=== PATIENT | male | born 1965 | race Caucasian/White ===

== ENCOUNTER 2021-06-03 06:55 | Outpatient (REF) | payer OTHER, SELFPAY ==
--- NOTE | ~2021-06-03 | CT_ITS ---
EXAMINATION: CT CHEST SCREENING CLINICAL INFORMATION: Nicotine dependence. COMPARISON: None. TECHNIQUE: Multidetector volumetric CT imaging of the chest is performed without contrast using low dose technique. Additional 2D coronal and sagittal reformatted images and axial 3D maximum intensity projection (MIP) images are generated on the CT workstation. This CT examination was performed using dose optimization techniques as appropriate, variously including the following: *Automated exposure control *Adjustment of mA and/or kV according to patient size (this includes techniques or standardized protocols for targeted exams where dose is matched to indication/reason for exam; i.e. extremities or head) *Use of iterative reconstruction technique DLP: 49 mGy-cm FINDINGS: LUNGS: There is 4 mm linear density right upper lobe anterior segment image 107/6, 2 mm nodules left upper lobe anterior segment image 203/6 and 199/6. No additional nodules, mass or consolidation seen. There is diffuse centrilobular emphysema most prominent in the upper lobes and basilar segments. MEDIASTINUM: The thyroid lobes are symmetric and normal. The central trachea and the bronchi are widely patent. Heart size and the great vessels are normal caliber. No abnormal size mediastinal or hilar lymph nodes seen. There is no pericardial effusion. PLEURA: There is no pleural effusion. No pleural mass or thickening. AXILLA: There are small shotty lymph nodes in the axilla. UPPER ABDOMEN: Visualized liver, spleen, pancreas and bilateral adrenal glands are unremarkable. OSSEOUS STRUCTURES: No aggressive lytic or sclerotic process seen. There is minimal ventral spondylosis. CT/CT lung screening IMPRESSION: Diffuse centrilobular emphysema. No focal mass or consolidation. There are 2 small nodules in the left upper lobe. ASSESSMENT: Lung-RADS category 2: Benign RECOMMENDATION: Low-dose annual CT chest exam
--- NOTE | ~2021-06-03 | XR_ITS ---
EXAMINATION: XR KNEE, RIGHT CLINICAL INFORMATION: Pain in the mass COMPARISON: None TECHNIQUE: 2 views of the right knee. FINDINGS: There is moderate loss of medial and patellofemoral compartment joint space with periarticular spurring. No acute fracture, bony erosive changes or loose body seen. There is mild suprapatellar joint effusion. XR/XR knee RT 2V IMPRESSION: Moderate degenerative arthritic changes medial and patellofemoral compartment. No visible acute fracture or dislocation. Mild suprapatellar joint effusion.
--- NOTE | ~2021-06-03 | XR_ITS ---
EXAMINATION: XR KNEE, LEFT CLINICAL INFORMATION: Pain and weakness COMPARISON: None TECHNIQUE: Four views of the left knee. FINDINGS: There is loss of lateral and patellofemoral compartment joint space with moderate periarticular spurring. No loose bodies or bony erosive changes seen. Minimal suprapatellar joint effusion seen. Rest the soft tissues are normal.. XR/XR knee LT 2V IMPRESSION: Moderate degenerative arthritic changes medial and patellofemoral compartment. No visible acute fracture or dislocation seen. Minimal suprapatellar joint effusion.
[2021-06-03 07:18] LABS: MANUAL DIFF FLAG NO
[2021-06-03 08:02] LABS: Basophils Percent Auto 0.6 % (0-2); Eosinophils Absolute Auto 0.2 X10*3/uL (0.0-0.4); Eosinophils Percent Auto 3.5 % (0-4); Hemoglobin 15.7 g/dl (14.0-18.0); Imm Gran Abs Auto 0.02 X10*3/uL (0.00-0.03); Imm Gran Pct Auto 0.3 % (0.0-0.4); Lymphocytes Absolute Auto 2.1 X10*3/uL (1.2-4.9); Lymphocytes Percent Auto 31.3 % (20-40); Mean Corpuscular HGB Conc 32.7 g/dl (31.0-36.0); Mean Corpuscular Hemoglobin 31.7 pg (27.0-33.0); Mean Platelet Volume 10.5 fL (9.4-12.4); Monocytes Absolute Auto 0.5 X10*3/uL (0.1-1.2); Monocytes Percent Auto 7.6 % (2-11); Neutrophils Absolute Auto 3.7 x10*3/uL (2.0-8.3); Neutrophils Percent Auto 56.7 % (45-73); Platelet Count 281 X10*3/uL (160-400); Red Blood Count 4.95 X10*6/uL (4.60-5.80); Red Cell Distribution Width 13.6 % (11.0-16.0); White Blood Count 6.6 X10*3/uL (4.8-10.8)
[2021-06-03 08:36] LABS: Alanine Aminotransferase 11 U/L (0-40); Albumin Level 3.9 g/dL (3.5-5.0); Alkaline Phosphatase 84 U/L (39-117); Anion Gap 10 (12-20); Aspartate Amino Transferase 12 U/L (5-37); Bilirubin Total 0.7 mg/dL (0.0-1.0); Blood Urea Nitrogen 19 mg/dL (9-16); Calcium 9.2 mg/dL (8.4-10.2); Carbon Dioxide 25 mmol/L (22-29); Chloride 110 mmol/L (96-108); Cholesterol 172 mg/dL; Estimated Glomerular Filt Rate > 60; Glucose Random 103 mg/dL (60-115); HDL Cholesterol 42 mg/dL; LDL Cholesterol Calculated 115 mg/dl; Potassium 5.1 mmol/L (3.3-5.1); Sodium 140 mmol/L (135-145); Total Protein 6.4 g/dL (6.5-8.0); Triglycerides 75 mg/dL
[2021-06-03 08:43] LABS: Free T4 (Free Thyroxine) 0.97 ng/dL (0.71-1.85); Thyroid Stimulating Hormone 1.15 uIU/mL (0.32-4.0)
[2021-06-03 09:13] LABS: Prostate Specific Antigen Scr 0.37 ng/mL (<0.05-4.0)
[2021-06-03 12:02] LABS: Folate 5.4 ng/mL (> or = 4.0); Vitamin B12 349 pg/mL (200-900)
== END 2021-06-03 06:56 | disposition home or self-care (01) ==
LOC: HO.CT 06:55
PROVIDERS: Absent Provider Internal Medicine; PCP Internal Medicine; Visit Provider Physician Assistant Medical
DX: Z12.2 Encounter for screening for malignant neoplasm of respiratory organs (principal); Z12.5 Encounter for screening for malignant neoplasm of prostate; F17.210 Nicotine dependence, cigarettes, uncomplicated; K21.9 Gastro-esophageal reflux disease without esophagitis; E78.00 Pure hypercholesterolemia, unspecified; M25.561 Pain in right knee; M25.562 Pain in left knee; R53.1 Weakness
CPT/HCPCS: 36415; 71271; 73560; 80053; 80061; 82607; 82746; 84153; 84439; 84443; 85025; G0296

== ENCOUNTER 2022-07-11 08:24 | Outpatient (REF) | payer BC, SELFPAY ==
--- NOTE | ~2022-07-11 | CT_ITS ---
EXAMINATION: CT CHEST SCREENING CLINICAL INFORMATION: Current smoker. 30 pack year history. COMPARISON: Previous chest CT May 2021 TECHNIQUE: Multidetector volumetric CT imaging of the chest is performed without contrast using low dose technique. Additional 2D coronal and sagittal reformatted images and axial 3D maximum intensity projection (MIP) images are generated on the CT workstation. This CT examination was performed using dose optimization techniques as appropriate, variously including the following: *Automated exposure control *Adjustment of mA and/or kV according to patient size (this includes techniques or standardized protocols for targeted exams where dose is matched to indication/reason for exam; i.e. extremities or head) *Use of iterative reconstruction technique DLP: 52 mGy-cm FINDINGS: LUNGS: There is evidence of emphysema. The small pulmonary nodules are stable. Largest pulmonary nodule measures 4 mm in the left upper lobe axial image 243 series 5 and right upper lobe axial image 138 series 5. No new pulmonary nodule. No endobronchial or endotracheal lesion. MEDIASTINUM: The mediastinum is normal. CORONARY ARTERY CALCIFICATION: None visualized on this study. PLEURA: There is no pleural effusion. No pleural mass or thickening. AXILLA: No lymphadenopathy. UPPER ABDOMEN: Central low-attenuation in the left kidney questionable for a peripelvic cyst versus hydronephrosis. OSSEOUS STRUCTURES: Mild scoliosis and degenerative changes. CT/CT lung screening IMPRESSION: Emphysema. Stable small pulmonary nodules. ASSESSMENT: Lung-RADS category 2: Benign RECOMMENDATION: Annual low-dose chest CT follow-up recommended
== END 2022-07-11 08:25 | disposition home or self-care (01) ==
LOC: HO.CT 08:24
PROVIDERS: PCP Internal Medicine; Visit Provider Physician Assistant Medical
DX: Z12.2 Encounter for screening for malignant neoplasm of respiratory organs (principal); F17.210 Nicotine dependence, cigarettes, uncomplicated
CPT/HCPCS: 71271

== ENCOUNTER 2022-12-19 07:07 | Outpatient (REF) | payer BC, SELFPAY ==
[2022-12-19 07:19] LABS: MANUAL DIFF FLAG NO
[2022-12-19 07:39] LABS: Basophils Absolute Auto 0.1 X10*3/uL (0.0-0.2); Basophils Percent Auto 1.1 % (0-2); Eosinophils Absolute Auto 0.3 X10*3/uL (0.0-0.4); Hematocrit 47.9 % (42.0-52.0); Hemoglobin 15.4 g/dl (14.0-18.0); Imm Gran Abs Auto 0.01 X10*3/uL (0.00-0.03); Imm Gran Pct Auto 0.2 % (0.0-0.4); Lymphocytes Absolute Auto 2.1 X10*3/uL (1.2-4.9); Lymphocytes Percent Auto 38.4 % (20-40); Mean Corpuscular HGB Conc 32.2 g/dl (31.0-36.0); Mean Corpuscular Hemoglobin 30.7 pg (27.0-33.0); Mean Corpuscular Volume 95.6 fL (80.0-98.0); Mean Platelet Volume 10.3 fL (9.4-12.4); Monocytes Absolute Auto 0.4 X10*3/uL (0.1-1.2); Monocytes Percent Auto 7.9 % (2-11); Neutrophils Absolute Auto 2.6 x10*3/uL (2.0-8.3); Neutrophils Percent Auto 47.4 % (45-73); Platelet Count 266 X10*3/uL (160-400); Red Blood Count 5.01 X10*6/uL (4.60-5.80); Red Cell Distribution Width 13.9 % (11.0-16.0); White Blood Count 5.6 X10*3/uL (4.8-10.8)
[2022-12-19 07:47] LABS: Estimated Average Glucose 108 mg/dL; Hemoglobin A1c % 5.4 % (<6.0)
[2022-12-19 08:08] LABS: Alanine Aminotransferase 11 U/L (0-40); Albumin Level 3.8 g/dL (3.5-5.0); Alkaline Phosphatase 79 U/L (39-117); Anion Gap 11 (12-20); Aspartate Amino Transferase 13 U/L (5-37); Bilirubin Total 0.7 mg/dL (0.0-1.0); Blood Urea Nitrogen 19 mg/dL (9-16); Calcium 8.8 mg/dL (8.4-10.2); Carbon Dioxide 24 mmol/L (22-29); Chloride 108 mmol/L (96-108); Cholesterol 159 mg/dL (<200); Estimated Glomerular Filt Rate 60; Glucose Random 99 mg/dL (60-115); HDL Cholesterol 38 mg/dL (>40); LDL Cholesterol Calculated 105 mg/dL (<100); Potassium 4.2 mmol/L (3.3-5.1); Sodium 139 mmol/L (135-145); Total Protein 6.3 g/dL (6.5-8.0); Triglycerides 84 mg/dL (<150)
[2022-12-19 08:28] LABS: Free T4 (Free Thyroxine) 0.93 ng/dL (0.71-1.85); Thyroid Stimulating Hormone 1.31 uIU/mL (0.32-4.0)
[2022-12-19 08:45] LABS: Folate 6.7 ng/mL (> or = 4.0); Vitamin B12 320 pg/mL (200-900)
== END 2022-12-19 07:08 | disposition home or self-care (01) ==
LOC: HO.LAB 07:07
PROVIDERS: PCP Internal Medicine; Visit Provider Internal Medicine
DX: Z12.5 Encounter for screening for malignant neoplasm of prostate (principal); R73.09 Other abnormal glucose; E78.00 Pure hypercholesterolemia, unspecified
CPT/HCPCS: 36415; 80053; 80061; 82607; 82746; 83036; 84153; 84439; 84443; 85025

== ENCOUNTER 2023-04-10 14:12 | Outpatient (AMB) | payer BC, SELFPAY ==
[2023-04-10 14:13] VITALS: BP 144/86; PULSE 81; O2SAT 97; BMI 24.8
--- NOTE | 2023-04-10 14:13 | MHC.PC.OV ---
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 Allergies No Known Allergies Allergy (Verified 04/10/23 14:13) Medication List - Last Reconciled 04/10/23 by Ivanna Wilkes MD albuterol sulfate 90 mcg/actuation (Ventolin HFA) 2 puffs inhalation Q6H PRN fluticasone furoate-vilanterol 200-25 mcg/dose (Breo Ellipta) 1 inh inhalation DAILY hydroxyzine HCl 25 mg PO BEDTIME nicotine (polacrilex) 2 mg buccal Q2H tramadol 50 mg PO DAILY varenicline (Chantix Starting Month Box) PO PER PKG DIR Tobacco use date assessed: 04/10/23 Dental Screening Dental Screen Date: 04/10/23 Did you have a dental visit in the last 12 months?: No Did you have a dental problem in the last 6 months where you did not have access to dental care?: No HPI COPD, tobacco abuse, gerd HPI Details 58-year-old male smoker with COPD GERD bilateral knee pain and generalized anxiety disorder last seen in August 2022. Patient had Cologuard sent in. [facility] Medical History (Updated 04/10/23 @ 14:46 by Ivanna Wilkes MD) Blood pressure elevated without history of HTN Colon cancer screening Personal history of nicotine dependence Vitamin D deficiency COPD (chronic obstructive pulmonary disease) Surgical History History of repair of laceration History of hand surgery History of surgical removal of skin lesion History of thumb surgery History of tonsillectomy Family History (Updated 09/05/22 @ 08:26 by Priya Vasquez CMA) Father No problems noted. Mother Hypertension Alzheimers disease Son ADHD Autism Social History Housing: House Alcohol intake: never Patient Tobacco Use Status: Current everyday Tobacco user Tobacco use type: Cigarette Cigarettes Per Day: 10 Years Smoked: onset 20, 1ppd x 36yrs, now 1/2ppd, 35pyh) e-Cigarette/Vaping Use: Never Used Second Hand Smoke Exposure: Yes Current occupational status: employed Cognitive needs: No Hearing needs: No Vision needs: Yes Questionnaire Thrive Questionnaire Date Thrive assessed: 04/10/23 I am a: Patient What is your living situation today?: I have a steady place to live Within the past 12 months, did the food you bought not last and you didn't have the money to get more?: Never true Within the past 12 months, did you worry whether your food would run out before you got money to buy more?: Never true Do you have trouble paying for medicines?: No Do you have trouble getting transportation to medical appointments?: No Do you have trouble paying your heating and electricity bill?: No Do you have trouble taking care of your child, family member or friend?: No Do you have trouble with day-to-day activities such as bathing, preparing meals, shopping, managing finances, etc.?: No Are you currently unemployed and looking for a job?: No Are you interested in more education?: No AUDIT C Alcohol Use Questionnaire (AUDIT-C) 1. How often do you have a drink containing alcohol?: Never 2. How many drinks containing alcohol do you have on a typical day when you are drinking?: 1 or 2 3. How often do you have six or more drinks on one occasion?: Never Total Score: 0 Score Reviewed/Action Taken: No JOHNIE-7 AMB Questionnaire JOHNIE-7 Date JOHNIE - 7 assessed: 04/10/23 Source: Developed by Drs. Avery Bravo, Theresa Luna, Aditya Eng and colleagues, with an educational sloan from [employer]. Physical exam (Primary Care) Vital Signs: Last Vital Signs Pulse 81 04/10/23 14:13 BP 144/86 H 04/10/23 14:13 Pulse Ox 97 04/10/23 14:13 Oxygen Delivery Method Room Air 04/10/23 14:13 BMI result Body Mass Index 24.8 Tobacco/Smoking Status: Tobacco use Status Tobacco use date assessed 04/10/23 04/10/23 14:14 Patient Tobacco Use Status Current everyday Tobacco 04/10/23 14:14 Tobacco use type Cigarette 04/10/23 14:14 e-Cigarette/Vaping Use Never Used 04/10/23 14:14 Thrive Assessment: Date of Thrive Assessment Date Thrive assessed 04/10/23 04/10/23 14:14 Const General: alert; No acute distress Eyes Conjunctivae: conjunctivae normal Resp Auscultation: clear to auscultation bilaterally Cardio Rate: regular rate Rhythm: regular rhythm GI Inspection: Yes normal to inspection Extrem General: Yes normal to inspection and No edema Office Procedures Flu Questionnaire Does the patient have a severe egg allergy?: No Does the patient have severe life threatening allergies?: No Does the patient have a fever or illness today?: No Has the patient ever had Guillain-Granger Syndrome?: No Has the patient ever had any past reaction to a flu shot?: No Immunizations flu vacc [id number] 6mos up(PF) 60 mcg(15 mcgx4)/0.5 mL IM syringe Performing Provider: Ivanna Wilkes MD [facility] Administered by: CIRO Smith on 04/10/23 14:20 Dose Route Admin Location Dispensed Lot Number Expiration Date NDC Entrepreneurship Program Director 0.5 mL IM Left Deltoid 0.5 mL [id number] 09/23/23 [id number] [employer] VIS Given Date VIS Provided VIS Publication Date 04/10/23 Single Vaccine 20 Eligibility Eligibility Date Funding Source Not [facility] Eligible 04/10/23 Private Assessment and Plan Assessment & Plan (1) Tobacco abuse: Comment: Lung cancer screening June 2022 Code(s): Z72.0 - Tobacco use Plan: Patient is strongly advised to stop smoking (2) COPD (chronic obstructive pulmonary disease): Comment: (12/2016 PFT = moderate obstructive lung disease) Code(s): J44.9 - Chronic obstructive pulmonary disease, unspecified Plan: Patient strongly advised to stop smoking. Patient on Breo and Ventolin. controlled use of ventolin 2 x a week (3) GERD (gastroesophageal reflux disease): Code(s): K21.9 - Gastro-esophageal reflux disease without esophagitis Plan: GERD plan (4) Generalized anxiety disorder: Comment: Declined referral Code(s): F41.1 - Generalized anxiety disorder Plan: Continue with present medication. (5) Blood pressure elevated without history of HTN: Code(s): R03.0 - Elevated blood-pressure reading, without diagnosis of hypertension Plan: patient also is in pain L knee - will monitor for now (6) Osteoarthritis of knees, bilateral: Code(s): M17.0 - Bilateral primary osteoarthritis of knee Plan: L knee pain , deny fall or trauma 2021 had OA already. concern - taking NSAID - renal function rising. (7) Renal insufficiency: Code(s): N28.9 - Disorder of kidney and ureter, unspecified Orders: Orders Influenza [id number] Immunization Today Z23 - Encounter for immunization XR knee LT 2V Today M17.0 - Bilateral primary osteoarthritis of knee Basic Metabolic Panel Today N28.9 - Disorder of kidney and ureter, unspecified Referrals Orthopedics Referral M17.0 - Bilateral primary osteoarthritis of knee Medications: New tramadol 50 mg PO DAILY 20 tabs 0RF M17.0 - Bilateral primary osteoarthritis of knee Discontinued nicotine (polacrilex) Discontinued Reason: Patient Refused 2 mg buccal Q2H 110 ea 2RF Z72.0 - Tobacco use cyclobenzaprine Discontinued Reason: Doctor's Order 5 mg PO BEDTIME PRN 10 tabs 0RF muscle spasm M54.9 - Dorsalgia, unspecified varenicline (Chantix Starting Month Box) Discontinued Reason: Patient Refused PO PER PKG DIR 53 ea 0RF Z72.0 - Tobacco use Coding Level of Care Code Est Pt Level 4 (34386) Diagnoses Tobacco abuse Z72.0 COPD (chronic obstructive pulmonary disease) J44.9 GERD (gastroesophageal reflux disease) K21.9 Generalized anxiety disorder F41.1 Blood pressure elevated without history of HTN R03.0 Osteoarthritis of knees, bilateral M17.0 Renal insufficiency N28.9
== END 2023-04-10 14:54 | disposition home or self-care (01) ==
PROVIDERS: PCP Internal Medicine; Visit Provider Internal Medicine
DX: J44.9 Chronic obstructive pulmonary disease, unspecified (principal); K21.9 Gastro-esophageal reflux disease without esophagitis; Z72.0 Tobacco use; Z23 Encounter for immunization; F41.1 Generalized anxiety disorder; R03.0 Elevated blood-pressure reading, without diagnosis of hypertension; M17.0 Bilateral primary osteoarthritis of knee; N28.9 Disorder of kidney and ureter, unspecified
CPT/HCPCS: 90471; 90686; 99214

== ENCOUNTER 2023-04-26 09:06 | Outpatient (AMB) | payer BC, SELFPAY ==
--- NOTE | 2023-04-26 09:08 | A.OFFVIS_ITS ---
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 Patient reports his pain has been going on for about 30 years is a 7 on the 1-10 pain scale. He denies injury, injections and has use NSAIDS but did not help. He has no longer able to take the anti-inflammatory medicines because of the effect on his kidneys. He has been taking tramadol which gives him only mild relief. This patient states that both of his knees will give out several times per day. He has not had an injection. He wishes to hold off on surgery if at all possible. Allergies No Known Allergies Allergy (Verified 04/26/23 09:21) Medication List - Last Reconciled 04/26/23 by Esdras Angulo MD albuterol sulfate 90 mcg/actuation (Ventolin HFA) 2 puffs inhalation Q6H PRN fluticasone furoate-vilanterol 200-25 mcg/dose (Breo Ellipta) 1 inh inhalation DAILY hydroxyzine HCl 25 mg PO BEDTIME tramadol 50 mg PO DAILY PFSH Medical History Blood pressure elevated without history of HTN Colon cancer screening Personal history of nicotine dependence Vitamin D deficiency COPD (chronic obstructive pulmonary disease) Surgical History History of repair of laceration History of hand surgery History of surgical removal of skin lesion History of thumb surgery History of tonsillectomy Family History Father No problems noted. Mother Hypertension Alzheimers disease Son ADHD Autism Social History Housing: House Alcohol intake: never Patient Tobacco Use Status: Current everyday Tobacco user Tobacco use type: Cigarette Cigarettes Per Day: 10 Years Smoked: onset 20, 1ppd x 36yrs, now 1/2ppd, 35pyh) e-Cigarette/Vaping Use: Never Used Second Hand Smoke Exposure: Yes Current occupational status: employed Cognitive needs: No Hearing needs: No Vision needs: Yes Physical Exam Vital Signs: BMI result Body Mass Index 24.8 Const Other: Well-nourished well-developed very friendly male awake alert and oriented x3 in no acute distress Extrem Other: Bilateral lower extremity examination shows good capillary refill, no skin lesions noted, normal sensation light touch Bilateral knee examination shows minimal effusions, palpable crepitus with range of motion, pain with range of motion, no instability Results Reviewed Results Reviewed: X-rays of the patient's bilateral knee show moderate joint space narrowing, subchondral sclerosis, no acute bony abnormalities Assessment & Plan Assessment & Plan (1) Right knee pain: Code(s): M25.561 - Pain in right knee (2) Left knee pain: Code(s): M25.562 - Pain in left knee Plan Mr. Bass presents with bilateral knee pains due to degenerative joint disease. I had a lengthy discussion with the patient regarding the treatment options. He wishes to hold off on an injection for now. Because of his mechanical symptoms I did have him fitted with bilateral knee braces. The braces are a medical necessity to help prevent future falls. The patient will continue with his activity modifications. He will continue taking tramadol as needed for his discomfort. Will follow up with me on an as-needed basis should his symptoms worsen in any way. Feel free to call me at any time should questions regarding his orthopedic management arise. Thank you very much for asking me to see this very friendly gentleman. I spent 22 minutes in reviewing the patient's records and imaging studies, seeing the patient and documenting in the medical record. Orders: Orders XR knee LT 3V Today M25.562 - Pain in left knee XR knee RT 3V Today M25.561 - Pain in right knee Coding Level of Care Code New Pt Level 2 (84710) Diagnoses Right knee pain M25.561 Left knee pain M25.562
[2023-04-26 09:09] VITALS: BMI 24.8
== END 2023-04-26 09:36 | disposition home or self-care (01) ==
PROVIDERS: PCP Internal Medicine; Visit Provider Orthopaedic Surgery
DX: M25.561 Pain in right knee (principal); M25.562 Pain in left knee
CPT/HCPCS: 99202

== ENCOUNTER 2023-04-26 09:57 | Outpatient (REF) | payer BC, SELFPAY ==
--- NOTE | ~2023-04-26 | XR_ITS ---
EXAMINATION: XR KNEE, RIGHT CLINICAL INFORMATION: Pain. COMPARISON: Radiographs dated 06/03/2021. TECHNIQUE: AP, lateral and sunrise views of the right knee are submitted. FINDINGS: Bony alignment and mineralization are normal. There is mild to moderate asymmetric narrowing of the medial joint space compartment. The lateral and patellofemoral joint space compartments are well-maintained. There is mild peripheral osteophyte formation of the medial and patellofemoral joint space compartments. No fracture or dislocation is seen. There is a small joint effusion. There is mild peripheral osteophyte formation of the medial joint space compartment. There is hypertrophy of the lateral spur of the median tibial eminence. No foreign body is seen. XR/XR knee RT 3V IMPRESSION: 1. There is mild to moderate osteoarthritic change of the medial joint space compartment of the right knee, and mild osteoarthritic change is seen of the patellofemoral compartment. 2. There is no fracture or dislocation. 3. There is a small joint effusion. EXAMINATION: XR KNEE, LEFT CLINICAL INFORMATION: Pain. COMPARISON: Radiographs dated 06/03/2021. TECHNIQUE: AP, lateral and sunrise views of the left knee are submitted. FINDINGS: Bony alignment and mineralization are normal. There is mild asymmetric narrowing of the medial joint space compartment, peripheral osteophyte formation. The lateral and patellofemoral joint space compartment are well-maintained. No fracture or dislocation is seen. There is a small joint effusion. No foreign body is seen. IMPRESSION: 1. There is mild osteoarthritic change of the medial joint space compartment of the left knee. 2. There is no fracture or dislocation. 3. A small joint effusion is seen.
--- NOTE | ~2023-04-26 | XR_ITS ---
EXAMINATION: XR KNEE, RIGHT CLINICAL INFORMATION: Pain. COMPARISON: Radiographs dated 06/03/2021. TECHNIQUE: AP, lateral and sunrise views of the right knee are submitted. FINDINGS: Bony alignment and mineralization are normal. There is mild to moderate asymmetric narrowing of the medial joint space compartment. The lateral and patellofemoral joint space compartments are well-maintained. There is mild peripheral osteophyte formation of the medial and patellofemoral joint space compartments. No fracture or dislocation is seen. There is a small joint effusion. There is mild peripheral osteophyte formation of the medial joint space compartment. There is hypertrophy of the lateral spur of the median tibial eminence. No foreign body is seen. XR/XR knee LT 3V IMPRESSION: 1. There is mild to moderate osteoarthritic change of the medial joint space compartment of the right knee, and mild osteoarthritic change is seen of the patellofemoral compartment. 2. There is no fracture or dislocation. 3. There is a small joint effusion. EXAMINATION: XR KNEE, LEFT CLINICAL INFORMATION: Pain. COMPARISON: Radiographs dated 06/03/2021. TECHNIQUE: AP, lateral and sunrise views of the left knee are submitted. FINDINGS: Bony alignment and mineralization are normal. There is mild asymmetric narrowing of the medial joint space compartment, peripheral osteophyte formation. The lateral and patellofemoral joint space compartment are well-maintained. No fracture or dislocation is seen. There is a small joint effusion. No foreign body is seen. IMPRESSION: 1. There is mild osteoarthritic change of the medial joint space compartment of the left knee. 2. There is no fracture or dislocation. 3. A small joint effusion is seen.
== END 2023-04-26 09:58 | disposition home or self-care (01) ==
LOC: HO.HOSX 09:57
PROVIDERS: Visit Provider Orthopaedic Surgery
DX: M25.561 Pain in right knee (principal); M25.562 Pain in left knee
CPT/HCPCS: 73562

== ENCOUNTER 2023-05-12 07:27 | Outpatient (REF) | payer BC, SELFPAY ==
[2023-05-12 08:45] LABS: Anion Gap 8 (12-20); Blood Urea Nitrogen 15 mg/dL (9-16); Calcium 8.9 mg/dL (8.4-10.2); Carbon Dioxide 26 mmol/L (22-29); Chloride 108 mmol/L (96-108); Estimated Glomerular Filt Rate > 60; Glucose Random 104 mg/dL (60-115); Potassium 4.4 mmol/L (3.3-5.1); Sodium 138 mmol/L (135-145)
== END 2023-05-12 07:28 | disposition home or self-care (01) ==
LOC: HO.LAB 07:27
PROVIDERS: PCP Internal Medicine; Visit Provider Internal Medicine
DX: N28.9 Disorder of kidney and ureter, unspecified (principal)
CPT/HCPCS: 36415; 80048

== ENCOUNTER 2023-12-05 08:56 | Outpatient (AMB) | payer BC, SELFPAY ==
[2023-12-05 09:03] VITALS: BP 138/82; PULSE 61; O2SAT 96; BMI 24.2
--- NOTE | 2023-12-05 09:03 | A.OFFPC_ITS ---
Vital Signs 12/05/23 09:03 Height 5 ft 9 in Weight 164 lb BMI 24.2 BP 138/82 Blood Pressure Location Lt brachial Position Sitting Pulse 61 Pulse Source Pulse Oximeter Pulse Oximetry (%) 96 Oxygen Delivery Method Room Air Intake Visit Reasons: knee OA left Manager English Required: No Accompanied by: Self / Same As Patient Allergies No Known Allergies Allergy (Verified 12/05/23 09:03) Tobacco use date assessed: 04/10/23 Dental Screening Dental Screen Date: 04/10/23 HPI knee OA left HPI Details 58-year-old male smoker with COPD GERD g eneralized anxiety disorder and bilateral knee osteoarthritis coming in for follow-up last seen in March. Concern about the blood pressure the last time. Up-to-date with Cologuard testing patient had some knee x-rays in April There is mild to moderate osteoarthritic change of the medial joint space compartment of the right knee, and mild osteoarthritic change is seen of the patellofemoral compartment. 2. There is no fracture or dislocation 3. There is a small joint effusion. Diandra carter has seen the Orthopedics and was given knee braces to prevent future falls. On voltaren gel [facility] Medical History (Updated 12/05/23 @ 09:31 by Ivanna Wilkes MD) Knee pain, bilateral Blood pressure elevated without history of HTN Colon cancer screening Personal history of nicotine dependence Vitamin D deficiency COPD (chronic obstructive pulmonary disease) Surgical History History of repair of laceration History of hand surgery History of surgical removal of skin lesion History of thumb surgery History of tonsillectomy Family History Father No problems noted. Mother Hypertension Alzheimers disease Son ADHD Autism Social History Housing: House Alcohol intake: never Patient Tobacco Use Status: Current everyday Tobacco user Tobacco use type: Cigarette Cigarettes Per Day: 10 Years Smoked: onset 20, 1ppd x 36yrs, now 1/2ppd, 35pyh) e-Cigarette/Vaping Use: Never Used Second Hand Smoke Exposure: Yes Current occupational status: employed Cognitive needs: No Hearing needs: No Vision needs: Yes Questionnaire PHQ-9 Over the last 2 weeks, how often have you been bothered by any of the following problems? 1. Little interest or pleasure in doing things: several days 2. Feeling down, depressed, or hopeless: several days 3. Trouble falling or staying asleep, or sleeping too much: several days 4. Feeling tired or having little energy: several days 5. Poor appetite or overeating: not at all 6. Feeling bad about yourself - or that you are a failure or have let yourself or your family down: not at all 7. Trouble concentrating on things, such as reading the newspaper or watching television: not at all 8. Moving or speaking so slowly that other people could have noticed. Or the opposite - being so fidgety or restless that you have been moving around a lot more than usual: not at all 9. Thoughts that you would be better off or of hurting yourself in some way: not at all Total score: 4 Depression Screening Interpretation: Negative Depression Screening Done: Yes 89661 - PHQ-9 Billing: Yes Source: Developed by Drs. Avery Bravo, Theresa Luna, Aditya Eng and colleagues, with an educational sloan from [employer]. Thrive Questionnaire Date Thrive assessed: 04/10/23 AUDIT C Alcohol Use Questionnaire (AUDIT-C) 1. How often do you have a drink containing alcohol?: Never 2. How many drinks containing alcohol do you have on a typical day when you are drinking?: 1 or 2 3. How often do you have six or more drinks on one occasion?: Never Total Score: 0 Score Reviewed/Action Taken: No JOHNIE-7 AMB Questionnaire JOHNIE-7 Date JOHNIE - 7 assessed: 04/10/23 Source: Developed by Drs. Avery Bravo, Theresa Luna, Aditya Eng and colleagues, with an educational sloan from [employer]. Physical exam (Primary Care) Vital Signs: Last Vital Signs Pulse 61 12/05/23 09:03 BP 138/82 12/05/23 09:03 Pulse Ox 96 12/05/23 09:03 Oxygen Delivery Method Room Air 12/05/23 09:03 BMI result Body Mass Index 24.2 Tobacco/Smoking Status: Tobacco use Status Tobacco use date assessed 04/10/23 12/05/23 09:03 Patient Tobacco Use Status Current everyday Tobacco 12/05/23 09:03 Tobacco use type Cigarette 12/05/23 09:03 e-Cigarette/Vaping Use Never Used 12/05/23 09:03 PHQ-9: PHQ-9 Score PHQ-9: Total score 4 12/05/23 09:08 Depression Screening Interpretation: Negative Thrive Assessment: Date of Thrive Assessment Date Thrive assessed 04/10/23 12/05/23 09:03 Const General: alert; No acute distress Eyes Conjunctivae: conjunctivae normal Resp Auscultation: clear to auscultation bilaterally Cardio Rate: regular rate Rhythm: regular rhythm GI Inspection: Yes normal to inspection Extrem General: Yes normal to inspection and No edema Assessment and Plan Assessment & Plan (1) Osteoarthritis of knees, bilateral: Code(s): M17.0 - Bilateral primary osteoarthritis of knee Plan: Patient has seen Orthopedics and was given knee braces in April (2) COPD (chronic obstructive pulmonary disease): Comment: (12/2016 PFT = moderate obstructive lung disease) Code(s): J44.9 - Chronic obstructive pulmonary disease, unspecified Plan: Patient was strongly advised to stop smoking! (3) GERD (gastroesophageal reflux disease): Code(s): K21.9 - Gastro-esophageal reflux disease without esophagitis Plan: Avoid the foods that causes that usually spicy foods, tomato products, juices, coffee, soda and foods that your sensitive to. After eating do not lie down, allow 3-4 hours before in lie down. And keep the head of bed above 30 degrees to avoid the acid from going up. (4) Tobacco abuse: Comment: Lung cancer screening June 2022 Code(s): Z72.0 - Tobacco use Plan: Patient is strongly advised to stop smoking (5) Varicose vein of leg: Code(s): I83.90 - Asymptomatic varicose veins of unspecified lower extremity (6) Numbness of right foot: Code(s): R20.0 - Anesthesia of skin Orders: Orders NE nerve conduction velocity Today R20.0 - Anesthesia of skin NE electromyogram (EMG) Today R20.0 - Anesthesia of skin Complete Blood Count Auto Diff Today J44.9 - Chronic obstructive pulmonary disease, unspecified Comprehensive Met. Panel Today J44.9 - Chronic obstructive pulmonary disease, unspecified Lipid Panel Today E78.00 - Pure hypercholesterolemia, unspecified, J44.9 - Chronic obstructive pulmonary disease, unspecified Thyroid Stimulating Hormone Today J44.9 - Chronic obstructive pulmonary disease, unspecified Vitamin B12 and Folate Today J44.9 - Chronic obstructive pulmonary disease, unspecified Prostate Specific Antigen Scr Today J44.9 - Chronic obstructive pulmonary disease, unspecified Free T4 (Free Thyroxine) Today J44.9 - Chronic obstructive pulmonary disease, unspecified Referrals Lung Cancer Screening Referral Z87.891 - Personal history of nicotine d ependence Coding Level of Care Code Est Pt Level 4 (97499) Diagnoses Osteoarthritis of knees, bilateral M17.0 COPD (chronic obstructive pulmonary disease) J44.9 GERD (gastroesophageal reflux disease) K21.9 Tobacco abuse Z72.0 Varicose vein of leg I83.90 Numbness of right foot R20.0
== END 2023-12-05 09:41 | disposition home or self-care (01) ==
PROVIDERS: PCP Internal Medicine; Visit Provider Internal Medicine
DX: M17.0 Bilateral primary osteoarthritis of knee (principal); J44.9 Chronic obstructive pulmonary disease, unspecified; K21.9 Gastro-esophageal reflux disease without esophagitis; Z72.0 Tobacco use; I83.90 Asymptomatic varicose veins of unspecified lower extremity; R20.0 Anesthesia of skin
CPT/HCPCS: 99214

== ENCOUNTER 2024-05-27 08:49 | Outpatient (AMB) | payer BC, SELFPAY ==
--- NOTE | 2024-05-27 09:19 | MHC.PC.OV ---
Vital Signs 05/27/24 09:21 Height 5 ft 9 in Weight 162 lb BMI 23.9 BP 132/80 Blood Pressure Location Lt brachial Position Sitting Pulse 64 Pulse Source Pulse Oximeter Pulse Oximetry (%) 96 Oxygen Delivery Method Room Air Intake Visit Reasons: AE Intake Note: Patient here for an annual exam Binder Sorter Required: No Accompanied by: Self / Same As Patient Allergies No Known Allergies Allergy (Verified 05/27/24 09:24) Medication List - Last Reconciled 05/27/24 by Ivanna Wilkes MD albuterol sulfate 90 mcg/actuation (Ventolin HFA) 2 puffs inhalation Q6H PRN Tobacco use date assessed: 05/27/24 Dental Screening Dental Screen Date: 05/27/24 Did you have a dental visit in the last 12 months?: No Did you have a dental problem in the last 6 months where you did not have access to dental care?: No Was dental information given to patient?: Patient declined [facility] Medical History (Updated 05/27/24 @ 09:31 by Ivanna Wilkes MD) Nicotine dependence, cigarettes, uncomplicated Knee pain, bilateral Blood pressure elevated without history of HTN Colon cancer screening Vitamin D deficiency COPD (chronic obstructive pulmonary disease) Surgical History History of repair of laceration History of hand surgery History of surgical removal of skin lesion History of thumb surgery History of tonsillectomy Family History Father No problems noted. Mother Hypertension Alzheimers disease Son ADHD Autism Social History Housing: House Alcohol intake: never Patient Tobacco Use Status: Current everyday Tobacco user Tobacco use type: Cigarette Cigarettes Per Day: 10 Years Smoked: onset 20, 1ppd x 36yrs, now 1/2ppd, 35pyh) e-Cigarette/Vaping Use: Never Used Second Hand Smoke Exposure: Yes service: No Current occupational status: employed Current occupational exposures/hazards: No Cognitive needs: No Hearing needs: No Vision needs: Yes Questionnaire PHQ-9 Over the last 2 weeks, how often have you been bothered by any of the following problems? 1. Little interest or pleasure in doing things: not at all 2. Feeling down, depressed, or hopeless: not at all 3. Trouble falling or staying asleep, or sleeping too much: not at all 4. Feeling tired or having little energy: not at all 5. Poor appetite or overeating: not at all 6. Feeling bad about yourself - or that you are a failure or have let yourself or your family down: not at all 7. Trouble concentrating on things, such as reading the newspaper or watching television: not at all 8. Moving or speaking so slowly that other people could have noticed. Or the opposite - being so fidgety or restless that you have been moving around a lot more than usual: not at all 9. Thoughts that you would be better off or of hurting yourself in some way: not at all Total score: 0 Depression Screening Interpretation: Negative Depression Screening Done: Yes Source: Developed by Drs. Avery Bravo, Theresa Luna, Aditya Eng and colleagues, with an educational sloan from [employer]. Thrive Questionnaire Date Thrive assessed: 05/27/24 I am a: Patient What is your living situation today?: I have a steady place to live Within the past 12 months, did the food you bought not last and you didn't have the money to get more?: Never true Within the past 12 months, did you worry whether your food would run out before you got money to buy more?: Never true Do you have trouble paying for medicines?: No Do you have trouble getting transportation to medical appointments?: No Do you have trouble paying your heating and electricity bill?: No Do you have trouble taking care of your child, family member or friend?: No Do you have trouble with day-to-day activities such as bathing, preparing meals, shopping, managing finances, etc.?: No Are you currently unemployed and looking for a job?: No Are you interested in more education?: No Please select the resources that you would like help with: None Currently or been in a relationship where the following occur: No concerns reported THRIVE Score: 0 AUDIT C Alcohol Use Questionnaire (AUDIT-C) 1. How often do you have a drink containing alcohol?: Never Total Score: 0 JOHNIE-7 AMB Questionnaire JOHNIE-7 Date JOHNIE - 7 assessed: 05/27/24 Feeling nervous, anxious, or on edge: 0 = Not at all Not being able to stop or control worryin = Not at all Worrying too much about different things: 0 = Not at all Trouble relaxin = Not at all Being so restless that it is hard to sit still: 0 = Not at all Becoming easily annoyed or irritable: 0 = Not at all Feeling afraid as if something awful might happen: 0 = Not at all Total JOHNIE-7 score (0-4 normal; 5-9 mild; 10-14 moderate; 15-21 severe): 0 Source: Developed by Drs. Avery Bravo, Theresa Luna, Aditya Eng and colleagues, with an educational sloan from [employer]. Review of Systems Const Denies poor appetite and Denies weakness Eyes Denies no additional complaints ENT Reports Normal hearing present, Denies dizziness, Denies nasal congestion, Denies tinnitus and Denies sore throat Card Denies chest pain, Denies syncope, Denies rapid heart rate and Denies dyspnea Resp Denies cough and Denies dyspnea GI Denies change in stool character, Reports constipation, Denies diarrhea, Denies nausea and Denies vomiting Denies dysuria and Denies urinary frequency Neuro Reports Normal hearing present, Denies confusion, Denies dizziness, Denies syncope and Denies weakness Psych Denies confusion Physical exam (Primary Care) Vital Signs: Last Vital Signs Pulse 64 05/27/24 09:21 BP 132/80 05/27/24 09:21 Pulse Ox 96 05/27/24 09:21 Oxygen Delivery Method Room Air 05/27/24 09:21 BMI result Body Mass Index 23.9 Tobacco/Smoking Status: Tobacco use Status Tobacco use date assessed 05/27/24 05/27/24 09:25 Patient Tobacco Use Status Current everyday Tobacco 05/27/24 09:25 Tobacco use type Cigarette 05/27/24 09:25 e-Cigarette/Vaping Use Never Used 05/27/24 09:25 PHQ-9: PHQ-9 Score PHQ-9: Total score 0 05/27/24 09:25 Depression Screening Interpretation: Negative Thrive Assessment: Date of Thrive Assessment Date Thrive assessed 05/27/24 05/27/24 09:25 Currently or been in a relationship where the following occur: No concerns reported Const General: No confusion Orientation/consciousness: No confusion HENMT Head: Yes normocephalic Ears: external ears normal and TM's normal bilaterally Face and sinus: Yes normal facial exam Mouth: moist mucous membranes Throat: Yes tonsils normal Eyes Conjunctivae: conjunctivae normal Pupils: Equal, round and reactive pupils present and Pupil accommodation reflex normal Direct Ophthalmoscopy: normal light reflex Neck Neck: No lymphadenopathy Thyroid: Thyroid normal Chest Chest palpation & inspection: normal inspection of the chest Resp Effort & Inspection: normal respiratory effort and no audible wheezes Auscultation: clear to auscultation bilaterally, no crackles, no wheezes and lung sounds not diminished Cardio Rate: regular rate Rhythm: regular rhythm Peripheral pulses: radial pulses present and dorsalis pedis present GI Palpation (GI): no masses Auscultation: normal bowel sounds and normoactive bowel sounds Rectal Exam - Male: Yes deferred Skin General skin exam: no rashes or lesions noted Rashes: no rashes Neuro General: No confusion Cranial nerves: Yes Equal, round and reactive pupils present and Yes Normal hearing present Cognition (Neuro): normal cognition Gait exam (Neuro): Normal gait present Motor exam (neuro): 5/5 motor strength present throughout Deep tendon reflexes (DTR's): Right brachioradialis reflex intensity grade: 2+, Left brachioradialis reflex intensity grade: 2+, Right patellar reflex intensity grade: 2+ and Left patellar reflex intensity grade: 2+ Extrem General: No edema Coding Level of Care Code Est Pt Prev Care 40-64y(97824) Diagnoses Annual physical exam Z00.00 Nicotine dependence, cigarettes, uncomplicated F17.210 COPD (chronic obstructive pulmonary disease) J44.9 GERD (gastroesophageal reflux disease) K21.9 Osteoarthritis of knees, bilateral M17.0 Generalized anxiety disorder F41.1 Assessment & Plan Assessment & Plan (1) Annual physical exam: Code(s): Z00.00 - Encounter for general adult medical examination without abnormal findings Category: Medical Plan: Patient is advised to eat healthy, keep well hydrated, keep active and have adequate sleep. (2) Nicotine dependence, cigarettes, uncomplicated: Comment: (onset 20, x 38yrs, max 1ppd, now 1/2ppd, 35pyh) lung cancer screening 07/13/2022 Code(s): F17.210 - Nicotine dependence, cigarettes, uncomplicated Category: Medical Plan: Patient is reminded about lung cancer screening as patient is overdue. (3) COPD (chronic obstructive pulmonary disease): Comment: (12/2016 PFT = moderate obstructive lung disease) Code(s): J44.9 - Chronic obstructive pulmonary disease, unspecified Category: Medical Plan: Patient is strongly advised to stop smoking! On albuterol inhaler as needed (4) GERD (gastroesophageal reflux disease): Code(s): K21.9 - Gastro-esophageal reflux disease without esophagitis Category: Medical Plan: Avoid the foods that causes that usually spicy foods, tomato products, juices, coffee, soda and foods that your sensitive to. After eating do not lie down, allow 3-4 hours before in lie down. And keep the head of bed above 30 degrees to avoid the acid from going up. (5) Osteoarthritis of knees, bilateral: Code(s): M17.0 - Bilateral primary osteoarthritis of knee Category: Medical Plan: Keep active (6) Generalized anxiety disorder: Comment: Declined referral Code(s): F41.1 - Generalized anxiety disorder Category: Medical Plan: Discussion about counseling and therapy. Plan History of Present Illness The patient is a 59-year-old male presenting for a physical exam and chronic condition management, specifically of COPD, GERD, and smoking-related habits. Notably, he experiences knee discomfort due to moderate bilateral osteoarthritis, observed in April 2023's X-ray. He has a history of general anxiety and smoking, consuming half a pack of cigarettes daily. His glucose level was slightly elevated at 104 mg/dL during his last tests in April 2023, though other parameters like electrolytes, renal, and liver function remained stable. He occasionally uses albuterol due to COPD management. Health promotion includes past normal screening results for PSA, thyroid function, cholesterol, and a negative result for colorectal cancer in September 2022. He is overdue for lung cancer screening and a CT scan, last performed in June 2022. Recent health maintenance concerns include episodes of foot numbness due to incorrect shoe sizing, addressed earlier. Lifestyle adjustments are discussed including smoking cessation and managing reflux symptoms by staying active and considering counseling support for stress management. Hemorrhoid management is ongoing with symptomatic treatments. Health Maintenance - Blood tests including electrolytes, renal function, liver function, glucose (Apr 2023). - Lung cancer screening suggested, overdue, last in June 2022. - Cologuard screening negative in September 2022. - Knee X-ray showing moderate osteoarthritis (Apr 2023). - PSA and vitamin B12 levels, along with thyroid functions, were normal. - Discussion on smoking cessation strongly advised. - Encouragement of physical activity. 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 - Reports stress related to being the mainstay at his workplace. - Consumes approximately half a pack of cigarettes daily with no current plan to quit. - Denies alcohol consumption. - Attempts at joint relief with vitamin supplements like Osteo Bi-Flex. - Maintains hydration with 7-8 bottles of water daily. Review of Systems - Gastrointestinal: Reports hemorrhoids with burning sensation, denies bleeding. - Musculoskeletal: Reports improvement in knee discomfort with supplements. - Pulmonary: Reports occasional use of albuterol inhaler for COPD. - Neurological: Reports past numbness in the foot due to incorrect footwear. Physical Exam General: Cooperative, healthy appearing, comfortable, no acute distress and well developed Orientation: Patient oriented x3 Limitations: No limitations Head: Normal to inspection Ears: Hearing grossly normal bilaterally Nose: Normal external nose present Face and sinus: Normal facial exam Eyes: Appearance normal, both eyes and all related structures Neck: Normal visual inspection and Yes full ROM Respiratory: Normal respiratory effort and able to speak in complete sentences. Clear to auscultation bilaterally Cardiovascular: Regular rate and rhythm. Normal S1 and S2 GI: Normal to inspection. Soft to palpation and nontender. Patient reports constipation and hemorrhoids, no bleeding noted. Skin: No rashes or lesions noted Neuro: Patient oriented x3 Extremities: Normal to inspection. Reports numbness in the foot, attributed to wrong size shoes. Results - Labs: Electrolytes, renal and liver function, and glucose (Apr 2023). - Tests: Cologuard negative (September 2022). - Diagnostic Imaging: Knee X-ray showing moderate osteoarthritis (Apr 2023). Plan For the management of COPD, continued use of albuterol inhaler on an as-needed basis is recommended alongside a strong emphasis on smoking cessation. GERD could benefit from active lifestyle maintenance, while counseling may assist with stress-linked triggers. Knee osteoarthritis symptoms have shown improvement with Osteo Bi-Flex; continuation is encouraged if benefits persist. For hemorrhoid discomfort, symptomatic relief with sitz baths and topical application remains viable. Lung cancer screenings and a CT scan are due for scheduling to ensure timely preventative assessments. Balanced life habits, hydration, and nutritional intake are imperative. Foot numbness was largely attributed to improper shoe sizing and appears resolved with appropriate corrective actions. Patient was informed and verbally consented to the use of an ambient scribe for clinic note documentation during this visit. Discussion Notes I discussed the importance of managing COPD through continued use of albuterol while strongly advising against smoking due to overall health risks. The management of GERD involves keeping physically active and considering counseling for stress. For osteoarthritis, the patient noted symptomatic relief with Osteo Bi-Flex. I highlighted the need for overdue CT scan and lung cancer screening scheduling. Patient education included hydration and a balanced diet. Hemorrhoids were addressed with topical treatment and sitz baths. A plan for reviewing smoking cessation and scheduling preventive screenings was approved in our discussion. Patient Instructions - Continue using albuterol inhaler as needed for COPD management. - Schedule your overdue lung cancer screening and CT scan. - Strongly attempt to quit smoking to benefit your overall health. - Stay active and consider stress management techniques like counseling. - Use Osteo Bi-Flex if it continues to relieve knee osteoarthritis symptoms. - Use topical treatment for hemorrhoids and engage in sitz baths as needed. - Maintain hydration and a balanced diet to support general wellbeing. - Ensure the correct fitting footwear to prevent foot numbness.
[2024-05-27 09:21] VITALS: BP 132/80; PULSE 64; O2SAT 96; BMI 23.9
--- OUTSIDE RECORDS SUMMARY | 2024-05-27 09:29 | XMS_ITS | Patient Health Record ---
Author Organization [facility] Address [address] [place] [address] Care Team Providers Care Hvac R Tech Name Role Phone Po Ivanna PEÑALOZA Primary Care Provider Avery Baeza [phone] ALLERGIES No Known Allergies REASON FOR REFERRAL No Information IMMUNIZATIONS Vaccine Route Administration Date Status Comme nts Influenza Unknown 05/24/2021 Administered SOCIAL HISTORY Tobacco Use: Social History Observation Description Date Details (start date - stop date) Former Smoker NA - NA Sex Assigned At : Social History Observation Description Sex Assigned At Unknown Tobacco Use/Smoking Question Answer Notes Patient is a former smoker How long has it been since you last smoked? 1-3 months Alcohol Screen Question Answer Notes Did you have a drink containing alcohol in the p ast year? No Points 0 Interpretation Negative PROBLEMS Problem Type ICD Code Onset Dates Problem Status W/U Status Risk SNOMED Code Notes Problem Encounter for screening for malignant neoplasm of colon (Z12.11) Active confirmed Screening for malignant neoplasm of colon (545601809) Problem Encounter for other preprocedural examination (Z01.818) Active confirmed Pre-procedure evaluation check (397591654) PLAN OF TREATMENT Future Test Test Name Order Date COLONOSCOPY 08/25/2021 Insurance Providers Payer Name Payer Address Payer Phone Subscriber Number Group Number Insured Name Patient Relationship to Insured Coverage Start Date Coverage End Date [facility] [address] [place] [address] [id number] MAURY ARREOLA Self - patient is the insured MEDICAL (GENERAL) HISTORY Medical History History ICD Code COPD--uses just a p.r.n. inhaler Denies [place],DM,CVA,,renal disease Surgical History Surgery Date(Month/Year)
== END 2024-05-27 09:54 | disposition home or self-care (01) ==
PROVIDERS: PCP Internal Medicine; Visit Provider Internal Medicine
DX: Z00.00 Encounter for general adult medical examination without abnormal findings (principal); F17.210 Nicotine dependence, cigarettes, uncomplicated; J44.9 Chronic obstructive pulmonary disease, unspecified; K21.9 Gastro-esophageal reflux disease without esophagitis; M17.0 Bilateral primary osteoarthritis of knee; F41.1 Generalized anxiety disorder; Z23 Encounter for immunization

== ENCOUNTER → 2024-05-27 08:49 | Outpatient (BNVA) | payer BC, SELFPAY | PROVIDERS: PCP Internal Medicine; Visit Provider Internal Medicine | DX: Z00.00 Encounter for general adult medical examination without abnormal findings (principal); Z23 Encounter for immunization; J44.9 Chronic obstructive pulmonary disease, unspecified; K21.9 Gastro-esophageal reflux disease without esophagitis; M17.0 Bilateral primary osteoarthritis of knee; F41.1 Generalized anxiety disorder; F17.210 Nicotine dependence, cigarettes, uncomplicated | CPT/HCPCS: 90471; 90656; 96127 ==

== ENCOUNTER 2025-03-11 08:22 | Outpatient (REF) | payer BC, SELFPAY ==
--- OUTSIDE RECORDS SUMMARY | 2025-03-11 08:34 | XMS_ITS | Patient Health Record ---
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 No Points 0 Interpretation Negative Tobacco Use: Social Info Question Answer Notes Tobacco Use/Smoking Patient is a former smoker How long has it been since you last smoked? 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 He denies any significant alcohol use Problems Problem Type SNOMED Code ICD Code Onset Dates Problem Status W/U Status Risk Notes Problem Screening for malignant neoplasm of colon (262940876) Encounter for screening for malignant neoplasm of colon (Z12.11) Active confirmed Problem Pre-procedure evaluation check (226631137) Encounter for other preprocedural examination (Z01.818) Active confirmed Plan Of Treatment Future Test Test Name Order Date COLONOSCOPY 08/25/2021 Insurance Providers Payer Name Payer Address Payer Phone Subscriber Number Group Number Insured Name Patient Relationship to Insured Coverage Start Date Coverage End Date [facility] [address] [place] [address] [id number] MAURY ARREOLA Self - patient is the insured Medical (General) History Medical History History ICD Code COPD--uses just a p.r.n. inhaler Denies [place],DM,CVA,,renal disease Surgical History Surgery Date(Month/Year)
[2025-03-11 10:32] LABS: MANUAL DIFF FLAG NO
[2025-03-11 10:49] LABS: Hematocrit 45.3 % (42.0-52.0); Hemoglobin 15.1 g/dl (14.0-18.0); Imm Gran Abs Auto 0.01 X10*3/uL (0.00-0.03); Imm Gran Pct Auto 0.2 % (0.0-0.4); Lymphocytes Absolute Auto 2.1 X10*3/uL (1.2-4.9); Mean Corpuscular HGB Conc 33.3 g/dl (31.0-36.0); Mean Corpuscular Hemoglobin 32.0 pg (27.0-33.0); Mean Corpuscular Volume 96.0 fL (80.0-98.0); NRBC Abs Auto 0.000 X10*3/uL (0.0-0.012); NRBC Pct Auto 0.0 /100WBC (0.0-0.2); Platelet Count 301 X10*3/uL (160-400); Red Blood Count 4.72 X10*6/uL (4.60-5.80); White Blood Count 6.0 X10*3/uL (4.8-10.8)
[2025-03-11 11:28] LABS: Alanine Aminotransferase 15 U/L (0-40); Albumin Level 4.2 g/dL (3.5-5.0); Alkaline Phosphatase 86 U/L (39-117); Anion Gap 11 (12-20); Aspartate Amino Transferase 20 U/L (5-37); Blood Urea Nitrogen 14 mg/dL (9-16); Calcium 9.4 mg/dL (8.4-10.2); Carbon Dioxide 26 mmol/L (22-29); Chloride 107 mmol/L (96-108); Cholesterol 166 mg/dL (<200); Estimated Glomerular Filt Rate > 60; HDL Cholesterol 51 mg/dL (>40); Potassium 4.1 mmol/L (3.3-5.1); Sodium 140 mmol/L (135-145); Total Protein 6.7 g/dL (6.5-8.0); Triglycerides 60 mg/dL (<150)
[2025-03-11 11:45] LABS: Folate 9.2 ng/mL (> or = 4.0); Vitamin B12 300 pg/mL (200-900)
[2025-03-11 12:01] LABS: Free T4 (Free Thyroxine) 1.24 ng/dL (0.71-1.85); Thyroid Stimulating Hormone 1.18 uIU/mL (0.32-4.0)
== END 2025-03-11 08:23 | disposition home or self-care (01) ==
LOC: HO.10HDL 08:22
PROVIDERS: Visit Provider Internal Medicine
DX: K21.9 Gastro-esophageal reflux disease without esophagitis (principal); J44.9 Chronic obstructive pulmonary disease, unspecified; E78.00 Pure hypercholesterolemia, unspecified; Z12.5 Encounter for screening for malignant neoplasm of prostate
CPT/HCPCS: 36415; 80053; 80061; 82607; 82746; 84153; 84439; 84443; 85025

== ENCOUNTER 2025-03-18 08:17 | Outpatient (AMB) | payer BC, SELFPAY ==
--- OUTSIDE RECORDS SUMMARY | 2025-03-18 08:20 | XMS_ITS | Patient Health Record ---
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 He denies any significant alcohol use Problems Problem Type SNOMED Code ICD Code Onset Dates Problem Status W/U Status Risk Notes Problem Screening for malignant neoplasm of colon (739528536) Encounter for screening for malignant neoplasm of colon (Z12.11) Active confirmed Problem Pre-procedure evaluation check (024741433) Encounter for other preprocedural examination (Z01.818) Active confirmed Plan Of Treatment Future Test Test Name Order Date COLONOSCOPY 08/25/2021 Insurance Providers Payer Name Payer Address Payer Phone Subscriber Number Group Number Insured Name Patient Relationship to Insured Coverage Start Date Coverage End Date [facility] [address] [place] [address] [id number] MAURY ARREOLA Self - patient is the insured Medical (General) History Medical History History ICD Code COPD--uses just a p.r.n. inhaler Denies [place],DM,CVA,,renal disease Surgical History Surgery Date(Month/Year)
--- NOTE | 2025-03-18 08:27 | MHC.PC.OV ---
Vital Signs 03/18/25 08:28 Height 5 ft 9 in Weight 167 lb BMI 24.7 BP 130/72 Blood Pressure Location Lt brachial Position Sitting Pulse 77 Pulse Source Pulse Oximeter Temp 97.1 F Temp Source Temporal Artery Scan Pulse Oximetry (%) 98 Oxygen Delivery Method Room Air Intake Visit Reasons: COPD Intake Note: Patient is here to follow up on COPD. 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 per policy Accompanied by: Self / Same As Patient Allergies No Known Allergies Allergy (Verified 03/18/25 08:28) Medication List - Last Reconciled 03/18/25 by Ivanna Wilkes MD albuterol sulfate 90 mcg/actuation (Ventolin HFA) 2 puffs inhalation Q6H PRN diclofenac sodium 1% (Voltaren Arthritis Pain) 4 grams topical QID fluticasone furoate-vilanterol 200-25 mcg/dose (Breo Ellipta) 1 inh inhalation Q24H [id number]-bosw 750 mg-644 mg- 30 mg-1 mg (Osteo Bi-Flex Triple Strength) 1 tab PO BID Tobacco use date assessed: 03/18/25 Dental Screening Dental Screen Date: 05/27/24 HPI HPI Comments History of Present Illness Details History of Present Illness The patient is a 60-year-old male presenting for a follow-up visit for management of his chronic conditions. His past medical history is significant for COPD, GERD, bilateral knee osteoarthritis, and generalized anxiety disorder. He is a current smoker. Regarding his COPD, he uses an albuterol inhaler as needed, approximately three times a week, typically when he experiences shortness of breath while walking upstairs. For his bilateral knee osteoarthritis, he reports significant pain and states his left knee is worse than his right. Previous x-rays showed moderate arthritis in both knees with only partial cartilage remaining in the left. He manages the pain with topical Voltaren and occasionally Salonpas, and he also takes Osteo Bi-Flex. He recently experienced an episode where his knee gave out and twisted. 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 He also has arthritis in his right shoulder. A review of labs from February 2025 showed a normal blood count without anemia, stable renal function, normal liver function, and an LDL cholesterol of 103 mg/dL. His fasting blood sugar was mildly elevated at 101 mg/dL, which he attributes to drinking Ensure. He is up to date with his Cologuard test from September 2022. He is due for a lung cancer screening CT scan but reports he was never called to schedule it. Health Maintenance - Colon cancer screening: Patient is up to date with his Cologuard test, which was done in September 2022. - Lung cancer screening: Patient was reminded about the lung cancer screening program and will be contacted to schedule a CT scan of the lungs. - Smoking cessation: The patient was strongly advised to stop smoking and reports he is cutting down on his tobacco use. - Lab monitoring: Recent blood work from February 2025 was reviewed, noting mildly elevated blood sugar at 101 mg/dL, likely due to Ensure consumption. 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 - Substance Use: He is a current smoker but reports that his use is decreasing. - Nutrition: He denies having a sweet tooth and does not drink soda. - He drinks Ensure every other day, which is thought to be the cause of his mildly elevated blood sugar. - Functional Status: The patient reports being in a lot of pain, which affects his work and daily activities. - He reports his knees feel like they collapse when lifting heavy items. - He recently required his 's assistance to get out of the shower due to pain. Results - Labs from February 2025: - Complete blood count: Normal, no anemia. - Eosinophils: Slightly high. - Electrolytes: Normal. - Renal function: Stable with creatinine of 1.11. - Blood sugar: Elevated at 101 mg/dL. - Liver function tests: Normal. - Cholesterol: LDL of 103 mg/dL. - Thyroid function: Normal. - Prostate-specific antigen: Normal. - B12 and folic acid: Good. - Imaging and Tests: - Cologuard (September 2022): Negative, patient up to date on screening. - Prior Knee X-ray: Showed moderate arthritis in both knees, with partial cartilage in the left knee. [facility] Medical History (Updated 03/18/25 @ 08:39 by Ivanna Wilkes MD) Nicotine dependence, cigarettes, uncomplicated Knee pain, bilateral Blood pressure elevated without history of HTN Colon cancer screening Vitamin D deficiency COPD (chronic obstructive pulmonary disease) Surgical History History of repair of laceration History of hand surgery History of surgical removal of skin lesion History of thumb surgery History of tonsillectomy Family History Father No problems noted. Mother Hypertension Alzheimers disease Son ADHD Autism Social History (Updated 03/18/25 @ 08:31 by CIRO King) Housing: House Alcohol intake: never Patient Tobacco Use Status: Current everyday Tobacco user Tobacco use type: Cigarette Cigarette Packs Per Day: 0.25 Cigarettes Per Day: 2 Years Smoked: onset 20, 1ppd x 36yrs, now 1/2ppd, 35pyh) e-Cigarette/Vaping Use: Never Used Second Hand Smoke Exposure: Yes service: No Current occupational status: employed Current occupational exposures/hazards: No Cognitive needs: No Hearing needs: No Vision needs: Yes Questionnaire PHQ-9 Over the last 2 weeks, how often have you been bothered by any of the following problems? 1. Little interest or pleasure in doing things: not at all 2. Feeling down, depressed, or hopeless: several days 3. Trouble falling or staying asleep, or sleeping too much: several days 4. Feeling tired or having little energy: several days 5. Poor appetite or overeating: not at all 6. Feeling bad about yourself - or that you are a failure or have let yourself or your family down: not at all 7. Trouble concentrating on things, such as reading the newspaper or watching television: not at all 8. Moving or speaking so slowly that other people could have noticed. Or the opposite - being so fidgety or restless that you have been moving around a lot more than usual: not at all 9. Thoughts that you would be better off or of hurting yourself in some way: not at all Total score: 3 Depression Screening Interpretation: Positive Depression Screening Done: Yes Source: Developed by Drs. Avery Bravo, Theresa Luna, Aditya Eng and colleagues, with an educational sloan from [employer]. Thrive Questionnaire Date Thrive assessed: 05/27/24 I am a: Patient What is your living situation today?: I have a steady place to live Within the past 12 months, did the food you bought not last and you didn't have the money to get more?: Often true Within the past 12 months, did you worry whether your food would run out before you got money to buy more?: Often true Do you have trouble paying for medicines?: No Do you have trouble getting transportation to medical appointments?: No Do you have trouble paying your heating and electricity bill?: Yes Do you have trouble taking care of your child, family member or friend?: No THRIVE Score: 3 JOHNIE-7 AMB Questionnaire JOHNIE-7 Date JOHNIE - 7 assessed: 05/27/24 Source: Developed by Drs. Avery Bravo, Theresa Luna, Aditya Eng and colleagues, with an educational sloan from [employer]. Review of Systems Narrative Review of Systems - Respiratory: Reports dyspnea on exertion, occurring about three times per week, particularly when walking upstairs. - Musculoskeletal: Reports significant knee pain, stating the left is worse than the right. - He also reports an episode where his knee gave out and twisted. - He reports his knees feel like they collapse when lifting. - He reports arthritis pain in his right shoulder. - Endocrine: Denies having a sweet tooth. Physical exam (Primary Care) Vital Signs: Last Vital Signs Temp 97.1 F 03/18/25 08:28 Pulse 77 03/18/25 08:28 BP 130/72 03/18/25 08:28 Pulse Ox 98 03/18/25 08:28 Oxygen Delivery Method Room Air 03/18/25 08:28 BMI result Body Mass Index 24.7 Tobacco/Smoking Status: Tobacco use Status Tobacco use date assessed 03/18/25 03/18/25 08:32 Patient Tobacco Use Status Current everyday Tobacco 03/18/25 08:32 Tobacco use type Cigarette 03/18/25 08:32 e-Cigarette/Vaping Use Never Used 03/18/25 08:32 PHQ-9: PHQ-9 Score PHQ-9: Total score 3 03/18/25 08:39 Depression Screening Interpretation: Positive Thrive Assessment: Date of Thrive Assessment Date Thrive assessed 05/27/24 03/18/25 08:32 Narrative Physical Exam Const General: alert; No acute distress Eyes Conjunctivae: conjunctivae normal Resp Auscultation: clear to auscultation bilaterally Cardio Rate: regular rate Rhythm: regular rhythm GI Inspection: Yes normal to inspection Extrem General: Yes normal to inspection and No edema Coding Level of Care Code Est Pt Level 4 (19495) Add On Problem Visit Only Diagnoses COPD (chronic obstructive pulmonary disease) J44.9 Nicotine dependence, cigarettes, uncomplicated F17.210 Osteoarthritis of knees, bilateral M17.0 GERD (gastroesophageal reflux disease) K21.9 Generalized anxiety disorder F41.1 Impaired glucose tolerance R73.02 Assessment & Plan Assessment & Plan (1) COPD (chronic obstructive pulmonary disease): Comment: (12/2016 PFT = moderate obstructive lung disease) Code(s): J44.9 - Chronic obstructive pulmonary disease, unspecified Category: Medical Plan: Continue with albuterol inhaler as needed (2) Nicotine dependence, cigarettes, uncomplicated: Comment: (onset 20, x 38yrs, max 1ppd, now 1/2ppd, 35pyh) lung cancer screening 07/13/2022 Code(s): F17.210 - Nicotine dependence, cigarettes, uncomplicated Category: Medical Plan: Patient is strongly advised to stop smoking! Patient is reminded about the cancer screening program (3) Osteoarthritis of knees, bilateral: Code(s): M17.0 - Bilateral primary osteoarthritis of knee Category: Medical Plan: Keep active (4) GERD (gastroesophageal reflux disease): Code(s): K21.9 - Gastro-esophageal reflux disease without esophagitis Category: Medical Plan: Avoid the foods that causes that usually spicy foods, tomato products, juices, coffee, soda and foods that your sensitive to. After eating do not lie down, allow 3-4 hours before in lie down. And keep the head of bed above 30 degrees to avoid the acid from going up. Stop smoking (5) Generalized anxiety disorder: Comment: Declined referral Code(s): F41.1 - Generalized anxiety disorder Category: Medical Plan: Stable (6) Impaired glucose tolerance: Code(s): R73.02 - Impaired glucose tolerance (oral) Category: Medical Plan: Decrease the amount of carbohydrate intake, pasta, bread, rice and potatoes are all sugar and that is aside from all the sweet stuff, remember that fruits are good but they are Sweet also. Plan Plan Patient was informed and verbally consented to the use of an ambient scribe for clinic note documentation during this visit. 1. Chronic Obstructive Pulmonary Disease The patient reports using his albuterol rescue inhaler about three times a week for dyspnea on exertion, indicating a need for maintenance therapy. He will continue his albuterol inhaler as needed. A new once-daily controller inhaler will be prescribed to be used on a regular basis to prevent symptom recurrence. The patient was counseled to rinse his mouth with water and spit after each use of the new inhaler. The prescription will be sent to [facility], and an alternative will be sought if it is not covered by insurance. 2. Bilateral Knee Osteoarthritis The patient reports significant pain from moderate bilateral knee osteoarthritis, which is exacerbated by his physically demanding job. A prescription for meloxicam will be provided for pain management, to be taken as needed with food. The patient was counseled that there is no cure for arthritis but that orthopedic evaluation could offer further options. [place] paperwork was completed for a three-month leave of absence, though the patient was advised it may not be approved as arthritis is a chronic condition that does not heal with time off. A referral will be placed to see an staffing specialist again for further management. 3. Tobacco Use Disorder The patient is a current smoker and was strongly advised to quit. He reports he is in the process of cutting down his use. The office will follow up on scheduling his pending lung cancer screening CT scan. 4. Impaired Glucose Tolerance The patient's recent lab work showed a fasting blood sugar of 101 mg/dL, which is mildly elevated but not in the diabetic range. This is likely attributable to his regular consumption of Ensure. The plan is to monitor this, and the patient was advised to be mindful of the sugar content in Ensure. 5. Gastroesophageal Reflux Disease (Gerd) And Generalized Anxiety Disorder These conditions were noted in the patient's history but were not a focus of today's visit. The plan is to continue current management for reflux. Discussion Notes I explained to the patient that because he is using his albuterol rescue inhaler three times a week, his COPD requires better control. I recommended adding a once-daily controller inhaler to prevent shortness of breath, and I instructed him to rinse his mouth after its use. We discussed his severe knee pain from osteoarthritis, a qkwj-[id number]-qifd condition that will not heal and is exacerbated by his job. I prescribed meloxicam for pain relief and advised him that further treatment options include injections or surgery, which would require an orthopedic consultation. I completed his FMLA paperwork for a three-month leave but counseled him that it is unlikely to be approved for a chronic condition like arthritis without a scheduled surgery. A referral back to orthopedics will be made. I reviewed his recent labs, which were reassuring except for a mildly elevated blood sugar, likely due to his Ensure intake, which we will monitor. I also strongly advised him on smoking cessation and informed him that my office will assist in scheduling his overdue lung cancer screening CT scan. Patient Instructions - You have been prescribed a new controller inhaler for your breathing. - Use it one time every day to prevent shortness of breath. - After using it, rinse your mouth with water and spit it out. - Continue to use your albuterol (rescue) inhaler only when you need it for sudden breathing problems. - You have been prescribed a new pain medication, meloxicam. - Take it with food only when you have knee pain. - If you do not have pain, do not take the medication. - You are strongly advised to stop smoking. - Be mindful that the Ensure drinks can raise your blood sugar. - We will place a referral for you to see the orthopedic (bone and joint) doctor again for your knees. - Our office will contact you to help schedule your CT scan of the lungs for cancer screening. Orders: Orders PT Evaluation and Treatment Today M17.0 - Bilateral primary osteoarthritis of knee Referrals Orthopedics Referral M25.561 - Pain in right knee Lung Cancer Screening Referral F17.210 - Nicotine dependence, cigarettes, uncomplicated Medications: New fluticasone furoate-vilanterol 200-25 mcg/dose (Breo Ellipta) 1 inh inhalation Q24H 60 ea 3RF J44.9 - Chronic obstructive pulmonary disease, unspecified meloxicam 7.5 mg PO DAILY 30 tabs 0RF J44.9 - Chronic obstructive pulmonary disease, unspecified
[2025-03-18 08:28] VITALS: BP 130/72; PULSE 77; TEMP 36.2; O2SAT 98; BMI 24.7
== END 2025-03-18 09:10 | disposition home or self-care (01) ==
LOC: HO.HMCH 08:18
PROVIDERS: PCP Internal Medicine; Visit Provider Internal Medicine
DX: J44.9 Chronic obstructive pulmonary disease, unspecified (principal); F17.210 Nicotine dependence, cigarettes, uncomplicated; M17.0 Bilateral primary osteoarthritis of knee; K21.9 Gastro-esophageal reflux disease without esophagitis; F41.1 Generalized anxiety disorder; R73.02 Impaired glucose tolerance (oral)